=== PATIENT | female | born 1980 | race Caucasian/White ===

== ENCOUNTER 2016-09-18 15:21 | Outpatient (CLI) | payer MEDICAID ==
[~2016-09-18] VITALS: Ht 162.6 cm; Wt 84.0 kg
[~2016-09-18 15:21] MED LIST: ACET500C5 PO; CYCL-319 PO; HYDR-906 PO; NAPR-260 PO; OFLO5DRO46 RIGHT EYE; ONDA4TAB8 PO; PREN1TAB62
[2016-09-18 16:21] VITALS: Ht 162.6 cm; Wt 84.0 kg
[2016-09-18 16:22] VITALS: BP 121/71; PULSE 80; RESP 18
[2016-09-18] MEDS ORDERED: CALC-516 PO (16:28)
[2016-09-18] MEDS ORDERED: FERR325C PO (16:28)
[2016-09-18 17:06] LABS: BASOPHILS % 0.7 % (0.0-2.0); EOSINOPHILS # 0.1 10^3/ul (0.0-0.5); EOSINOPHILS % 2.5 % (0.0-7.0); HEMATOCRIT 33.5 % (37.0-47.0); HEMOGLOBIN 11.6 g/dl (12.0-16.0); LYMPHOCYTES # 1.6 10^3/ul (0.8-2.9); MEAN CORPUSCULAR HGB CONC 34.7 g/dl (32.0-37.0); MEAN CORPUSCULAR VOLUME 95.1 fl (82.0-101.0); MEAN PLATELET VOLUME 9.5 fl (7.4-10.4); MONOCYTE # 0.4 10^3/ul (0.3-0.9); MONOCYTES % 6.8 % (0.0-11.0); NEUTROPHIL # 3.9 10^3/ul (1.6-7.5); PLATELET COUNT 189 10^3/UL (140-440); RED BLOOD COUNT 3.53 10^6/ul (4.20-5.40)
[2016-09-18 17:24] LABS: CONDITION 1
[2016-09-18 18:40] LABS: ALBUMIN 3.4 g/dl (3.3-4.9); POTASSIUM 3.8 mmol/L (3.5-5.1)
[2016-09-18 18:42] LABS: BILIRUBIN,INDIRECT 0.1 mg/dl (0-1.1); BILIRUBIN,TOTAL 0.1 mg/dl (0.2-1.3); CREATININE 0.44 mg/dl (0.44-1.00)
[2016-09-18 18:43] LABS: ALBUMIN/GLOBULIN RATIO 1.09; CALCIUM 8.6 mg/dl (8.4-10.2); TOTAL PROTEIN 6.5 g/dl (6.1-8.1)
--- NOTE | 2016-09-18 19:15 | QN ---
Documentation Comment 36 y/o female at 20 weeks gestation sent in by perinatologist for patient C/O dizziness 4X q week PMH PSH + for previous C/S X 2 Allergies and habits denied General P/E is gross;y normal All labs including EKG and pulse ox. are normal will D/C home F/U as out patient RAAD SEXTON MD Sep 18, 2016 19:15
--- NOTE | 2016-09-18 22:58 | TRIAGE ---
OB Triage Datetime Report Generated by CPN: 09/18/2016 22:58 Datetime: 09/18/2016 19:00 Labor Evaluation Frequency: NONE Monitor Mode: External Duration (sec)2399: NONE Pattern: Normal: <= 5 Contractions in 10 Minutes Comments: NST FOR GESTATIONAL AGE Datetime: 09/18/2016 18:14 Stage of : OB Triage Datetime: 09/18/2016 18:00 Stage of : OB Triage Labor Evaluation Frequency: 0 Monitor Mode: External Resting Tone Bond: Relaxed Datetime: 09/18/2016 17:00 Labor Evaluation Frequency: 0 Monitor Mode: External Resting Tone Bond: Relaxed Datetime: 09/18/2016 16:31 Labor Evaluation Frequency: 0 Monitor Mode: External Pain Assessment Pain Scale: 3 Pain Presence: Constant Pain Type: Ache Pain Location: Head Pain Goal: 0 Datetime: 09/18/2016 16:03 EGA: 20.2 Datetime: 09/18/2016 15:58 Stage of : OB Triage Datetime: 09/18/2016 15:56 Assessment Type: Triage Maternal Assessment Level of Consciousness: Fully Conscious DTR's/Clonus: DTRs 1+; No Clonus Headache: Occipital Blurred Vision: No Respiratory Effort: Unlabored Breath Sounds, Left: Clear and Equal Breath Sounds, Right: Clear and Equal Nausea/Vomiting: Denies RUQ Epigastric Pain: Denies Lower Extremities Edema: None Degree: None Upper Extremities Edema: None Degree: None Facial Edema: None Fall Risk Assessment History of Falling: (0) No Secondary Diagnosis: (15) Yes (Annotations: C/SX2) Ambulatory Aid: (0) Bedrest/Nurse Assist IV Therapy: (0) No Gait: (0) Normal/Bedrest/Immobile Mental Status: (0) Oriented to Own Ability Fall Score: 15 Fall Risk Score Definition: No Risk: No action required Datetime: 09/18/2016 15:52 Monitor Mode: External Heart Rate Monitor Mode: Doppler Comments: FHTs x 1 min, audible 128- 144 Datetime: 09/18/2016 15:42 Time of Arrival: 09/18/2016 15:10 Arrived By: Ambulatory Arrived From: Other Unit in Hospital Chief Complaint: Sent from perinatology clinic rt HBP Contractions: Denies/Absent Rupture of Membranes: Denies Vaginal Bleeding: None Vaginal Discharge: Denies Recent Sexual Intercouse: Denies Abdominal Trauma: Not Applicable Patient Complaints: Other Time Provider Notified: 09/18/2016 18:04 Provider Notified: CHANDLER Initial Plan: VS, TOCO, DOPPLER, BP STUDIES, ekg, cbc, o2 sat monitoring
--- NOTE | 2016-09-20 11:46 | RADRPT ---
Vent Rate: 79 bpm RR Interval: [address] Interval: 134 msec QRS Duration: 86 msec QT Interval: 398 msec QTC Interval: 456 msec P-R-T [place]: 30 - 31 - 16 degrees Normal sinus rhythm Normal ECG Electronically Signed By: Laith Nguyen [id number]
== END 2016-09-18 19:20 | disposition home or self-care (01) ==
LOC: OBT 15:21 → L-D 15:21 → OBT 19:20
PROVIDERS: ATTEND Obstetrics & Gynecology
DX: O26.892 Other specified pregnancy related conditions, second trimester (principal); R42 Dizziness and giddiness; Z3A.20 20 weeks gestation of pregnancy
CPT/HCPCS: 80053; 85025; 93005; Z7500; G0463

== ENCOUNTER 2017-01-28 11:38 | Inpatient (IN) | payer MEDICAID ==
[~2017-01-28] VITALS: Ht 162.6 cm; Wt 89.5 kg
[2017-01-28] VITALS (12 sets, daily range): BP systolic 136–178; BP diastolic 68–104; PULSE 58–98; RESP 14–20; Ht 162.6 cm; Wt 89.5 kg
[~2017-01-28 11:38] MED LIST changes: -ACET500C5 PO; +CALC-516 PO; -CYCL-319 PO; +FERR325C PO; -HYDR-906 PO; -NAPR-260 PO; -OFLO5DRO46 RIGHT EYE; -ONDA4TAB8 PO
[2017-01-28] MEDS ORDERED: LACTATED RINGER'S 1,000 ML IV SCH (12:25)
[2017-01-28] MEDS ORDERED: OXYTOCIN 30 UNITS/LR 500 ML IV SCH ×2 (12:30→21:30)
[2017-01-28] MEDS ORDERED: MISOPROSTOL 200 MCG TAB PR PRN ×3 (12:30→21:30)
[2017-01-28] MEDS ORDERED: CARBOPROST 250 MCG INJ IM PRN ×2 (12:30→20:00)
[2017-01-28] MEDS ORDERED: CEFAZOLIN 2 GM/50 ML (PMX) 50 ML IV SCH (12:30)
[2017-01-28] MEDS ORDERED: OXYTOCIN 30 UNITS/LR 500 ML IV PRN ×3 (12:30→21:30)
[2017-01-28] MEDS ORDERED: METHYLERGONOVINE 0.2 MG INJ IM PRN ×3 (12:30→21:30)
[2017-01-28 12:40] LABS: ADD SCAN DIFF NO
[2017-01-28 12:42] LABS: BASOPHILS % 0.5 % (0.0-2.0); EOSINOPHILS # 0.1 10^3/ul (0.0-0.5); EOSINOPHILS % 2.3 % (0.0-7.0); HEMATOCRIT 34.3 % (37.0-47.0); HEMOGLOBIN 11.6 g/dl (12.0-16.0); LYMPHOCYTES # 1.9 10^3/ul (0.8-2.9); LYMPHOCYTES % 32.3 % (15.0-51.0); MEAN CORPUSCULAR HEMOGLOBIN 30.8 pg (29.0-33.0); MEAN CORPUSCULAR HGB CONC 33.8 g/dl (32.0-37.0); MEAN PLATELET VOLUME 12.5 fl (7.4-10.4); MONOCYTE # 0.3 10^3/ul (0.3-0.9); MONOCYTES % 5.9 % (0.0-11.0); NEUTROPHIL # 3.4 10^3/ul (1.6-7.5); NEUTROPHILS % 58.7 % (39.0-77.0); PLATELET COUNT 191 10^3/UL (140-415); RED BLOOD COUNT 3.77 10^6/ul (4.20-5.40); RED CELL DISTRIBUTION WIDTH 14.5 % (11.5-14.5); WHITE BLOOD COUNT 5.8 10^3/ul (4.8-10.8)
[2017-01-28 12:57] LABS: INR 0.88; PROTIME 11.9 Sec (12.2-14.2); PT RATIO 0.9
[2017-01-28 12:58] LABS: PARTIAL THROMBOPLASTIN TIME 27.9 Sec (25.0-35.0)
[2017-01-28] MEDS ORDERED: KETOROLAC 30 MG INJ ONE (14:45)
[2017-01-28] MEDS ORDERED: METOCLOPRAMIDE 10 MG INJ ONE (14:45)
[2017-01-28] MEDS ORDERED: morphine SULFATE/PF (10 MG/10 ML) INJ ONE (14:45)
[2017-01-28] MEDS ORDERED: CITRIC ACID/SODIUM CITRATE 15 ML CUP PO ONE (15:00)
[2017-01-28] MEDS ORDERED: MEPERIDINE 25 MG INJ IV PRN ×2 (15:30→17:30)
[2017-01-28] MEDS ORDERED: ONDANSETRON 4 MG INJ IV PRN ×4 (15:30→22:00)
[2017-01-28] MEDS ORDERED: METOCLOPRAMIDE 10 MG INJ IV PRN ×2 (15:30→17:30)
[2017-01-28] MEDS ORDERED: DIPHENHYDRAMINE 50 MG INJ IV PRN ×4 (15:30→22:00)
[2017-01-28] MEDS ORDERED: HYDROmorphONE (0.2 MG/ML) 10ML SYG IV PRN ×6 (15:30→17:30)
[2017-01-28] MEDS ORDERED: FENTAnyl 50 MCG/ML VIAL ONE (15:33)
--- NOTE | 2017-01-28 16:15 | HP ---
Date/Time of Note Date/Time of Note DATE: 01/28/17 TIME: 16:13 OB - History Hx of Present Free Text/Dictation admitted for repeat C/S and sterilization procedure at term Last Menstrual Period: Apr 29, 2016 Estimated Due Date: Feb 03, 2017 : 3 Para: 2 Care: Good Care Ultrasounds: Normal mid trimester US Obstetrical Complications: None Medical Complications: None Past Family/Social History * Past Medical, Surgical, Family and Obstetric Histories reviewed from chart. Blood Type: O+ Rubella: immune RPR/VDRL: Negative GBS Status: Negative HBsAG: Negative OB Admission Exam Vital Signs Vital Signs Vital Signs Date Time Temp Pulse Resp B/P Pulse Ox O2 Delivery O2 Flow Rate FiO2 01/28/17 12:23 98.7 78 16 142/84 Room Air Physical Exam HEENT: WNL Heart: Rhythm Normal Lungs: Clear, Equal Abdomen: WNL Extremities: Normal Reflexes: Normal Cervical Dilatation: None Effacement: 0% Station: -3 Membranes: Intact Heart Rate: 140's Accelerations: Accelerations Present Decelerations: No Decelerations Varibility: Moderate Contractions on Admission: None Last 72 hours Lab Results CBC & BMP 01/28/17 12:10 OB Assessment/Plan Reason for admission: section Other Assessment: term gestation previous C/S X 2 desires sterilization Other plan: repeat C/S and BTL RAAD SEXTON MD Jan 28, 2017 16:15
--- NOTE | 2017-01-28 16:18 | OPR ---
Operative Report Planned Procedure Procedure date Jan 28, 2017 Procedure(s) repeat C/S + BTL Performed by: RAAD SEXTON MD Assisting provider: SIM DANGELO MD Anesthesiologist: MINGO CHOUDHARY MD Pre-procedure diagnosis term gestation previous C/S X 2 desires sterilization Anesthesia Type: spinal Procedure Description Under satisfactory anaesthesia a Pfannenstiel incision was made two fingerbreadth above and parallel to the symphysis of pubis around the previous scar and previous scar was removed Incision was extended laterally to the border of the Recti muscles on either sides. Incision was carried down with sharp and blunt dissection until fascia was reached. Anterior Recti muscle fascia was incised in mid portion and incision extended laterally to the border of skin incision. Fascia was mobilized from muscle superiorly and Recti muscles were from midline using sharp and blunt dissection. Peritoneum was visualized; Avoiding bowel and bladder it was incised . Incision was extended superiorly and inferiorly. Bladder blade was placed. Posterior peritoneum covering the lower segment of the uterus and lower segment of the uterus were incised.Low transverse uterine incision was made on lower segment of the uterus. Incision extended laterally to the border of Round Lig. on either sides and baby was delivered from OT. position . Amniotic fluid appeared clear. Cord blood was obtained and cord had 3 vessels . Placenta was delivered spontaneously and appeared intact and complete. Intrauterine cavity was rubbed with a laparotomy sponge. Uterine incision was closed in 2 layers using running stitches of No1 Monocryl. Hemostasis appeared secure. Ovaries and Fallopian tubes were within normal limits. Bilateral Tubal Ligation was performed by following procedure: R fallopian tube was raised in mid portion; a Lisa clamp was placed below the fimbriae extending to proximal portion of the fallopian tube. Another clamp was placed parallel to the first and after incising the fallopian tube the stump was sutured using 0 Vicryl stitch. Hemostasis was secure . Same procedure was done on fallopian tube on the opposite side. Hemostasis appeared to be secure on ligated sites of either fallopian tubes. Announcing needle, lap sponge and instrument count to be correct abdomen was closed in layers as follows: Peritoneum and Recti muscles with running stitches of 20 Vicryl. Fascia with running stitch of No 1 PDS. Subcutaneous tissue with running stitches of 20 Chromic and skin was closed using mikayla. Patient tolerated the procedure well and was transferred to [facility] in good condition. Post-Procedure Post-procedure diagnosis S/P C/S Findings: Live Baby Specimen removed: Yes Specimen description segments of R and L fallopian tubes Complications: None Pt Condition post procedure: stable Disposition: PACU Physician Certification I, the undersigned physician, hereby certify that I have discussed the procedure described in this consent form with this patient (or the patient's legal patient representative), including: * The risk and benefits of the procedure; * Any adverse reactions that may reasonably be expected to occur; * Any alternative efficacious methods of treatment which may be medically viable ; * The potential problems that may occur during recuperation; * Potential for blood transfusion and associated risks/benefits; and * Any research or economic interest I may have regarding this treatment. I further certify that the patient/legally responsible person was encouraged to ask question and that all questions were answered. RAAD SEXTON MD Jan 28, 2017 16:17
[2017-01-28] MEDS ORDERED: HYDROmorphONE 1 MG/ML SYG IV PRN ×6 (17:30→22:00)
[2017-01-28] MEDS ORDERED: NALOXONE (0.4 MG/ML) INJ IV PRN ×2 (17:30→22:00)
[2017-01-28] MEDS ORDERED: CARBOPROST 250 MCG INJ IM ONE (18:30)
[2017-01-28] MEDS: LACTATED RINGER'S 1,000 ML IV SCH ×2 (19:53→21:30)
[2017-01-28] MEDS ORDERED: LANOLIN 7 GM TUBE TOP PRN (20:00)
[2017-01-28] MEDS ORDERED: NA PHOSPHATE/BIPHOS 133 ML ENEMA PR PRN (20:00)
[2017-01-28] MEDS ORDERED: ACETAMINOPHEN/CODEINE #3 TAB PO PRN (20:00)
[2017-01-28] MEDS: KETOROLAC 30 MG INJ IV PRN (22:01)
[2017-01-28] MEDS: SENNA/DOCUSATE NA (8.6MG/50MG) TAB PO SCH (22:02)
[2017-01-28] MEDS: CEFAZOLIN 2 GM/50 ML (PMX) 50 ML IV SCH (22:03)
[2017-01-28] MEDS: CLINDAMYCIN 300 MG CAP PO SCH (23:26)
[2017-01-29] VITALS (8 sets, daily range): BP systolic 114–128; BP diastolic 60–89; PULSE 71–86; RESP 17–19
[2017-01-29] MEDS: LACTATED RINGER'S 1,000 ML IV SCH ×4 (02:34→13:30)
[2017-01-29] MEDS: CEFAZOLIN 2 GM/50 ML (PMX) 50 ML IV SCH ×2 (06:00→16:20)
[2017-01-29] MEDS: CLINDAMYCIN 300 MG CAP PO SCH ×4 (06:01→23:56)
[2017-01-29 08:15] LABS: ADD SCAN DIFF NO
[2017-01-29 08:18] LABS: BASOPHILS % 0.3 % (0.0-2.0); EOSINOPHILS % 0.7 % (0.0-7.0); HEMATOCRIT 26.4 % (37.0-47.0); HEMOGLOBIN 8.9 g/dl (12.0-16.0); LYMPHOCYTES # 1.8 10^3/ul (0.8-2.9); LYMPHOCYTES % 28.5 % (15.0-51.0); MEAN CORPUSCULAR HEMOGLOBIN 30.5 pg (29.0-33.0); MEAN CORPUSCULAR HGB CONC 33.7 g/dl (32.0-37.0); MEAN CORPUSCULAR VOLUME 90.4 fl (82.0-101.0); MEAN PLATELET VOLUME 12.2 fl (7.4-10.4); MONOCYTE # 0.5 10^3/ul (0.3-0.9); MONOCYTES % 7.6 % (0.0-11.0); NEUTROPHIL # 3.9 10^3/ul (1.6-7.5); NEUTROPHILS % 62.7 % (39.0-77.0); PLATELET COUNT 156 10^3/UL (140-415); RED BLOOD COUNT 2.92 10^6/ul (4.20-5.40); RED CELL DISTRIBUTION WIDTH 14.7 % (11.5-14.5); WHITE BLOOD COUNT 6.2 10^3/ul (4.8-10.8)
[2017-01-29] MEDS: SENNA/DOCUSATE NA (8.6MG/50MG) TAB PO SCH ×2 (08:50→21:33)
[2017-01-29] MEDS ORDERED: BISACODYL 10 MG SUPP PR ONE (10:00)
[2017-01-29] MEDS: KETOROLAC 30 MG INJ IV PRN (11:45)
[2017-01-29] MEDS: OXYCODONE/ACETAMINOPHEN (5/325) TAB PO PRN (18:02)
--- NOTE | 2017-01-29 20:38 | PN ---
Date/Time of Note Date/Time of Note DATE: 01/29/17 TIME: 20:36 Assessment/Plan VTE Prophylaxis VTE Prophylaxis Intervention: ambulation Lines/Catheters IV Catheter Type (from Nrsg): Peripheral IV Assessment/Plan Assessment/Plan S/P C/S POD # 1 will advance diet and ambulate Subjective 24 Hr Interval Summary NO BM passing flatus Constitutional: BM, ambulates, flatus, improved, no complaints, urine output Pain Control: well controlled Exam/Review of Systems Vital Signs Vitals Vital Signs Date Time Temp Pulse Resp B/P Pulse Ox O2 Delivery O2 Flow Rate FiO2 01/29/17 19:30 98.3 80 18 127/84 Room Air 01/29/17 12:05 97 21 Intake and Output 01/28/17 01/28/17 01/29/17 15:00 23:00 07:00 Intake Total 1000 ml 3050 ml 850 ml Output Total 300 ml 1431 ml 500 ml Balance 700 ml 1619 ml 350 ml Exam Free Text/Dictation abdomen: soft BS+ incision: covered Constitutional: alert, oriented, well developed Psych: nl mood/affect, no complaints Head: atraumatic, normocephalic Eyes: EOMI, nl conjunctiva, nl lids, nl sclera ENMT: mucosa pink and moist, nl external ears & nose, nl lips & teeth, nl nasal mucosa & septum Neck: non-tender, supple Respiratory: clear to auscultation, normal air movement Cardiovascular: nl pulses, regular rate and rhythm Gastrointestinal: nl liver, spleen, non-tender, soft Drains none Musculoskeletal: nl extremities to inspection, nl gait and stance Extremities: normal pulses Neurological: SAP BASIS II-XII intact, nl mental status, nl speech, nl strength Skin: nl turgor, rash or lesions Lymph: nl lymph nodes Results Result Diagram: 01/29/17 0745 RAAD SEXTON MD Jan 29, 2017 20:38
--- NOTE | 2017-01-29 21:10 | PN ---
Date/Time of Note Date/Time of Note DATE: 01/29/17 TIME: 21:08 Assessment/Plan VTE Prophylaxis VTE Prophylaxis Intervention: ambulation Lines/Catheters IV Catheter Type (from Nrsg): Peripheral IV Subjective 24 Hr Interval Summary Free Text/Dictation Anesthesia note: A 36 year female s/p spinal duramorph pod# 1 is doing finr. no back pain or headache , n/v, itching. pain is controlled. Exam/Review of Systems Vital Signs Vitals Vital Signs Date Time Temp Pulse Resp B/P Pulse Ox O2 Delivery O2 Flow Rate FiO2 01/29/17 19:30 98.3 80 18 127/84 Room Air 01/29/17 12:05 97 21 Intake and Output 01/28/17 01/28/17 01/29/17 15:00 23:00 07:00 Intake Total 1000 ml 3050 ml 850 ml Output Total 300 ml 1431 ml 500 ml Balance 700 ml 1619 ml 350 ml Results Result Diagram: 01/29/17 0745 Results 24 hrs Laboratory Tests Test 01/29/17 07:45 White Blood Count 6.2 Red Blood Count 2.92 #L Hemoglobin 8.9 #L Hematocrit 26.4 #L Mean Corpuscular Volume 90.4 Mean Corpuscular Hemoglobin 30.5 Mean Corpuscular Hemoglobin Concent 33.7 Red Cell Distribution Width 14.7 H Platelet Count 156 Mean Platelet Volume 12.2 H Neutrophils % 62.7 Lymphocytes % 28.5 Monocytes % 7.6 Eosinophils % 0.7 Basophils % 0.3 Nucleated Red Blood Cells % 0.0 Neutrophils # 3.9 Lymphocytes # 1.8 Monocytes # 0.5 Eosinophils # 0.0 Basophils # 0.0 Nucleated Red Blood Cells # 0.0 Medications Medications Current Medications Ibuprofen (Motrin) 800 mg Q8 PO ; Start 01/29/17 at 22:00 Simethicone (Mylicon) 160 mg Q8H PRN PO DISTENSION/GAS/BLOATING; Start at 20:00 Senna/Docusate Sodium (Senokot-S) 1 tab BID PO Last administered on 01/29/17t 08:50; Admin Dose 1 TAB; Start 01/28/17 at 21:00 Sodium Biphosphate/ Sodium Phosphate (Fleet Enema) 133 ml DAILY PRN DE CONSTIPATION; Start 01/28/17 at 20:00 Diphtheria/ Tetanus/Acell Pertussis 0.5 ml 0.5 ml ONCE ONCE IM* ; Start at 09:00; Stop 01/31/17 at 09:01 Oxytocin/Lactated Ringer's 500 ml @ 0 mls/hr ONCE PRN IV For Hemorrhage Management; Start 01/28/17 at 20:00 Methylergonovine Maleate (Methergine) 0.2 mg ONCE PRN IM VAGINAL BLEEDING; Start 01/28/17 at 20:00 Carboprost Tromethamine (Hemabate) 250 mcg ONCE PRN IM VAGINAL BLEEDING; Start 01/28/17 at 20:00 Misoprostol (Cytotec) 1,000 mcg ONCE PRN DE VAGINAL BLEEDING; Start 01/28/17 at 20:00 Acetaminophen/ Codeine Phosphate (Tylenol No.3) 2 tab Q4H PRN PO PAIN LEVEL 1-5 ; Start 01/28/17 at 20:00 Oxycodone/ Acetaminophen 2 tab 2 tab Q4H PRN PO PAIN LEVEL 6-10 Last administered on 01/29/17 18:02; Admin Dose 2 TAB; Start 01/28/17 at 20:00 Oxytocin/Lactated Ringer's 500 ml @ 125 mls/hr ONCE IV Last administered on 22:02; Admin Dose 125 MLS/HR; Start 01/28/17 at 21:30 Oxytocin/Lactated Ringer's 500 ml @ 0 mls/hr ONCE PRN IV For Hemorrhage Management; Start 01/28/17 at 21:30 Methylergonovine Maleate (Methergine) 0.2 mg ONCE PRN IM VAGINAL BLEEDING; Start 01/28/17 at 21:30 Misoprostol (Cytotec) 1,000 mcg ONCE PRN DE VAGINAL BLEEDING; Start 01/28/17 at 21:30 Naloxone HCl (Narcan) 0.1 mg Q2M PRN IV FOR RESP RATE 8 OR LESS; Start at 22:00; Stop 01/29/17 at 21:59 Ketorolac Tromethamine (Toradol) 30 mg Q6H PRN IV PAIN Last administered on 11:45; Admin Dose 30 MG; Start 01/28/17 at 22:00; Stop 01/29/17 at 21:59 Hydromorphone HCl (Dilaudid) 1 mg Q3H PRN IV BREAKTHROUGH PAIN; Start 01/28/17 at 22:00; Stop 01/29/17 at 21:59 Hydromorphone HCl (Dilaudid) 0.2 mg Q3H PRN IV PAIN LEVEL 1-5; Start 01/28/17 at 22:00; Stop 01/29/17 at 21:59 Hydromorphone HCl (Dilaudid) 0.4 mg Q3H PRN IV PAIN LEVEL 6-10; Start 01/28/17 at 22:00; Stop 01/29/17 at 21:59 Diphenhydramine HCl (Benadryl) 25 mg Q6H PRN IV ITCHING; Start 01/28/17 at 22: 00; Stop 01/29/17 at 21:59 Ondansetron HCl (Zofran Inj) 4 mg Q6H PRN IV NAUSEA AND/OR VOMITING; Start at 22:00; Stop 01/29/17 at 21:59 Clindamycin HCl (Cleocin) 300 mg Q6 PO Last administered on 01/29/17t 18:01; Admin Dose 300 MG; Start 01/29/17 at 12:00 MINGO CHOUDHARY MD Jan 29, 2017 21:10
[2017-01-29] MEDS: IBUPROFEN 800 MG TAB PO SCH (21:32)
[2017-01-30] MEDS: OXYCODONE/ACETAMINOPHEN (5/325) TAB PO PRN ×4 (02:23→23:38)
[2017-01-30 03:50] VITALS: BP 142/77; PULSE 83; RESP 18
[2017-01-30] MEDS: IBUPROFEN 800 MG TAB PO SCH ×3 (05:55→21:32)
[2017-01-30] MEDS: CLINDAMYCIN 300 MG CAP PO SCH ×4 (05:55→23:38)
[2017-01-30 08:10] VITALS: BP 126/69; PULSE 73; RESP 19
[2017-01-30] MEDS: SENNA/DOCUSATE NA (8.6MG/50MG) TAB PO SCH ×2 (08:40→21:32)
[2017-01-30 16:18] VITALS: BP 135/89; PULSE 91; RESP 19
--- NOTE | 2017-01-30 17:28 | DS ---
Date/Time of Note Date/Time of Note home next day DATE: 01/30/17 TIME: 17:27 Obstetrical Discharge Record Final Diagnosis Final Diagnosis: Term delivered Vaginal Delivery Obstetrical Delivery: Bilateral Tubal Ligation Section Section: Repeat Condition on Discharge Physical Assessment Last Vitals: see nurses notes Voiding: Yes Bowel Movement: Yes Breast: Soft, non-tender, Filling Fundus: Firm Abdomen and Incision: soft BS + incision: healing well Episiotomy: NA Calf Tenderness: No Patient Condition: Good RAAD SEXTON MD Jan 30, 2017 17:28
--- NOTE | 2017-01-30 17:29 | DS ---
Date/Time of Note Date/Time of Note DATE: 01/30/17 TIME: 17:28 Discharge Summary Admission/Discharge Info Admit Date/Time Jan 28, 2017 at 11:38 Discharge Date/Time 01/31/2017 Final Diagnosis S/P reepat C/S + BTL Patient Condition: Good Procedures repeat C/S + BTL Hx of Present Illness 36 y/o female had repeat C/S + BTL Hospital Course uncomplicated Home Meds Reported Medications Calcium Carbonate/Vitamin D3 (OYSTER SHELL CALCIUM TABLET) 1 Each Tablet, 1 EACH PO DAILY, TAB 09/18/16 Ferrous Sulfate (Iron) 325 Mg Capsule.er, 325 MG PO, CAP 09/18/16 Vit-Iron Fumarate-FA ( Vitamin Tablet) 1 Each Tablet, 1 EACH .ROUTE DAILY 04/05/13 Follow-up Plan 2-3 days in clinic for staple removal Primary Care Provider Care Physician RAAD Pate MD Jan 30, 2017 17:29
[2017-01-30] MEDS ORDERED: IBUP800T25 PO (17:31)
[2017-01-30] MEDS ORDERED: Oxycodone/Acetamin (5/325) PO (17:31)
--- NOTE | 2017-01-30 17:31 | PD.PPDC ---
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
[2017-01-31 03:57] VITALS: BP 123/74; PULSE 66; RESP 18
[2017-01-31] MEDS: OXYCODONE/ACETAMINOPHEN (5/325) TAB PO PRN ×2 (05:03→12:13)
[2017-01-31] MEDS: IBUPROFEN 800 MG TAB PO SCH ×2 (06:00→15:00)
[2017-01-31] MEDS: CLINDAMYCIN 300 MG CAP PO SCH ×2 (06:11→12:12)
[2017-01-31 08:00] VITALS: BP 134/85; PULSE 72; RESP 18
[2017-01-31] MEDS ORDERED: DIPHTH/TET/ACEL PERTUSS (ADULT) 0.5 ML VIAL IM* ONE (09:00)
[2017-01-31] MEDS: SENNA/DOCUSATE NA (8.6MG/50MG) TAB PO SCH (12:12)
== END 2017-01-31 15:00 | disposition home or self-care (01) | DRG 766 ==
LOC: L-D 11:38 → PP1 20:46
PROVIDERS: ADMIT Obstetrics & Gynecology; ATTEND Obstetrics & Gynecology
PROC: 0UL70ZZ Occlusion of Bilateral Fallopian Tubes, Open Approach (ICD-10-PCS; 2017-01-28)
PROC: 10D00Z1 Extraction of Products of Conception, Low, Open Approach (ICD-10-PCS; principal; 2017-01-28 14:00)
DX: O34.211 Maternal care for low transverse scar from previous cesarean delivery (principal); O13.4 Gestational [pregnancy-induced] hypertension without significant proteinuria, complicating childbirth; Z30.2 Encounter for sterilization; Z3A.39 39 weeks gestation of pregnancy; Z37.0 Single live birth
CPT/HCPCS: 85025; 85610; 85730; 86592; 86850; 86900; 86901; 87340; 88302; 88307; 90715; 94760; 99464; J0690; J1170; J1885; J2274; J2590; J2765; J3010; J7120

== ENCOUNTER 2018-07-08 19:49 | Emergency (ER) | END 2018-07-08 21:47 | disposition home or self-care (01) ==

== ENCOUNTER 2018-10-29 19:29 | Emergency (ER) | payer MEDICAID ==
[~2018-10-29] VITALS: Ht 162.6 cm; Wt 83.0 kg
[~2018-10-29 19:29] MED LIST changes: +CIPR500T4 PO; +IBUP-1544 PO; +Oxycodone/Acetamin (5/325) PO
[2018-10-29 20:05] VITALS: Ht 162.6 cm; Wt 83.0 kg
--- NOTE | 2018-10-30 03:17 | ERD ---
ER Documentation Chief Complaint Chief Complaint SUPRAPUBIC PAIN, DYSURIA X 2 DAYS HPI This is a 38-year-old female who presents emergency department with complaints of dysuria, burning urination for about 2 days. LMP: Stated it was last week. . Denies headache, head injury, loss of consciousness, dizziness, neck pain, neck stiffness, throat pain, difficulty swallowing, difficulty breathing lying flat, shoulder pain, chest pain, back pain, abdominal pain, nausea, vomiting, constipation, diarrhea, urinary symptoms, or possibility being , loss of bowel and bladder control, trauma, injury, falls, difficulty walking due to pain, numbness or tingling sensation, calf pain, recent travel, recent major surgery in the last 3 weeks, calf pain, recent long travel, recent exposure to any illness, recent antibiotic use in the last 3 months, fever, chills, seizures. Past medical history: Surgical history: Social: Denies smoking, use of alcoholic beverages, use of illegal drugs. ROS All systems reviewed and are negative except as per history of present illness. Medications Home Meds Active Scripts Ibuprofen* (Motrin*) 800 Mg Tab, 800 MG PO Q6H PRN for PAIN AND OR ELEVATED TEMP, #30 TAB Prov:GINNA MEHTA F 10/30/18 Phenazopyridine Hcl* (Pyridium*) 100 Mg Tab, 100 MG PO TID PRN for URINARY PAIN, #8 TAB Prov:GINNA MEHTA F 10/30/18 Cephalexin* (Keflex*) 500 Mg Capsule, 500 MG PO QID for 5 Days, CAP Prov:PASILAGINNA OSHEA F 10/30/18 Ciprofloxacin Hcl* (Ciprofloxacin Hcl*) 500 Mg Tablet, 500 MG PO BID for 7 Days, TAB Prov:KERI MARCOS PA-C 07/08/18 [Oxycodone/Acetamin (5/325)] 1 TAB TAB No Conflict Check, 2 TAB PO Q4H PRN for PAIN LEVEL 6-10, #30 0 Refills Prov:RAAD SEXTON MD 01/30/17 Ibuprofen* (Ibuprofen*) 800 Mg Tablet, 800 MG PO Q8, #30 TAB 0 Refills Prov:RAAD SEXTON MD 01/30/17 Reported Medications Calcium Carbonate/Vitamin D3 (OYSTER SHELL CALCIUM TABLET) 1 Each Tablet, 1 EACH PO DAILY, TAB 09/18/16 Ferrous Sulfate (Iron) 325 Mg Capsule.er, 325 MG PO, CAP 09/18/16 Vit-Iron Fumarate-FA ( Vitamin Tablet) 1 Each Tablet, 1 EACH .ROUTE DAILY 04/05/13 Allergies Allergies: Coded Allergies: No Known Drug Allergies (Verified Allergy, Unknown, 09/18/16) PMhx/Soc History of Surgery: Yes ( C SECTION ) Anesthesia Reaction: No Hx Neurological Disorder: No Hx Respiratory Disorders: No Hx Cardiac Disorders: No Hx Psychiatric Problems: No Hx Miscellaneous Medical Probl: No Hx Alcohol Use: No Hx Substance Use: No Hx Tobacco Use: No Physical Exam Vitals Physical Exam Const: No acute distress Head: Atraumatic Eyes: Normal Conjunctiva ENT: Normal External Ears, Nose and Mouth. Neck: Full range of motion. No meningismus. Resp: Clear to auscultation bilaterally Cardio: Regular rate and rhythm, no murmurs Abd: Soft, non tender, non distended. Normal bowel sounds. Negative Salamanca sign. Negative Rebecca sign (heel jar test). Negative psoas sign. Negative Rovsing sign. Examined with female auto customize painter, Divya BERGERON. Mild suprapubic tenderness. Bilateral inguinal areas no swelling/tenderness/discoloration. Skin: No petechiae or rashes Back: No midline or flank tenderness. No CVA tenderness. Ext: No cyanosis, or edema Neur: Awake and alert. No neurological deficit. Psych: Normal Mood and Affect Results 24 hrs Laboratory Tests Test 10/30/18 03:25 10/30/18 03:35 10/30/18 03:37 Urine Color YELLOW Urine Clarity CLOUDY Urine pH 6.0 Urine Specific [place] 1.023 Urine Ketones 1+ mg/dL Urine Nitrite NEGATIVE mg/dL Urine Bilirubin NEGATIVE mg/dL Urine Urobilinogen NEGATIVE mg/dL Urine Leukocyte Esterase NEGATIVE Jose/ul Urine Microscopic RBC 3 /HPF Urine Microscopic WBC 4 /HPF Urine Squamous Epithelial Cells MODERATE /HPF Urine Mucus FEW /HPF Urine Hemoglobin NEGATIVE mg/dL Urine Glucose 1+ mg/dL Urine Total Protein 1+ mg/dl Chlamydia trachomatis RNA (TMA) NOT DETECTED Chlamydia/GC Comment SEE NOTE Neisseria gonorrhoeae RNA (TMA) NOT DETECTED Bedside Urine pH (LAB) 6.0 Bedside Urine Protein (LAB) 1+ Bedside Urine Glucose (UA) Negative Bedside Urine Ketones (LAB) 2+ Bedside Urine Blood Negative Bedside Urine Nitrite (LAB) Negative Bedside Urine Leukocyte Esterase Negative (L POC Beta HCG, Qualitative NEGATIVE Current Medications Medications Dose Sig/Matthew Start Time Status Last (Trade) Ordered Route PRN Stop Time Admin Dose Reason Admin Ibuprofen 800 mg ONCE ONCE 10/30/18 DC 10/30/18 (Motrin) PO 05:00 05:04 10/30/18 05:01 Procedures/MDM Diagnostic tests: POC urine : Negative. POC urine dipstick: Urinalysis: Reviewed. Culture urine: Sent. Gonorrhea and Chlamydia: Sent. Treatment: Refuses medication. Re-evaluation: Denies abdominal pain. No episode of emesis here in the emergency department. No abdominal tenderness. Differential diagnosis I have low suspicion for sepsis, pancreatitis, cholecystitis, diverticulitis, bowel obstruction, appendicitis, pyelonephritis, nephrolithiasis, obstructing kidney stone, septic stone. Final diagnosis: Dysuria. Prescription: Pyridium. Motrin. Keflex. Patient is insisting antibiotic. Follow-up with PCP in the next 24-48 hours. Come back here in the emergency department for any new symptoms or any worsening symptoms. All questions and concerns were answered. Patient and family members verbalized understanding and agreed with plan of care. Hemodynamically stable on discharge. Departure Diagnosis: Primary Impression: Dysuria Condition: Stable Additional Instructions: Follow-up with PCP in the next 24-48 hours. Come back here in the emergency department for any new symptoms or any worsening symptoms. GINNA MEHTA Oct 30, 2018 03:17
[2018-10-30] MEDS ORDERED: PHEN-537 PO (04:50)
[2018-10-30] MEDS ORDERED: CEPH-443 PO (04:50)
[2018-10-30] MEDS ORDERED: IBUP800T48 PO (04:50)
[2018-10-30] MEDS ORDERED: IBUPROFEN 800 MG TAB PO ONE (05:00)
[2018-10-30 05:06] VITALS: BP 127/68; PULSE 64; RESP 18
== END 2018-10-30 05:07 | disposition home or self-care (01) ==
LOC: FTE 19:29
DX: R30.0 Dysuria (principal); R10.2 Pelvic and perineal pain
CPT/HCPCS: 81001; 81025; 87591; Z7610; 81003; 99283